=== PATIENT | male | born 2000 | race Caucasian/White ===

== ENCOUNTER 2023-06-28 15:24 | Emergency (ER) | payer BC ==
[~2023-06-28] VITALS: Ht 167.6 cm; Wt 79.5 kg
[2023-06-28 15:32] VITALS: TEMP 98.3
[2023-06-28 16:50] VITALS: BP 121/77; PULSE 93
== END 2023-06-28 16:50 | disposition short-term general hospital (02) ==
LOC: COL.ER 15:24
DX: N50.812 Left testicular pain (principal)